=== PATIENT | female | born 1960 | race American Indian/Alaskan Native ===

== ENCOUNTER 2017-12-13 08:17 | Day surgery (SDC) | payer OTHER ==
--- NOTE | 2017-12-13 10:22 | Anesthesia Day of Surgery ---
Anesthesia Day of Surgery - Day of Surgery Patient Examined: Yes Patient H&P Reviewed: Yes Patient is NPO: Yes
--- NOTE | 2017-12-13 10:22 | Anesthesia Consultation ---
Anesthesia Consult and Med Hx Date of service: 12/13/17 - Airway Anesthetic Teeth Evaluation: Good ROM Head & Neck: Adequate Mental/Hyoid Distance: Adequate Mallampati Class: Class II Intubation Access Assessment: Probably Good - Pulmonary Exam CTA: Yes - Cardiac Exam Cardiac Exam: RRR - Pre-Operative Health Status ASA Pre-Surgery Classification: ASA2, ASA3 Proposed Anesthetic Plan: MAC - Pulmonary Hx Smoking: No Hx Asthma: No Hx Respiratory Symptoms: Yes (chronic non-prod. cough) SOB: No COPD: No - Cardiovascular System Hx Hypertension: Yes Hx Coronary Artery Disease: No Hx Heart Attack/AMI: No - Central Nervous System Hx Neuromuscular Disorder: No - Endocrine Hx Renal Disease: No
[2017-12-13] MEDS ORDERED: VERSED ONE (10:31)
[2017-12-13] MEDS ORDERED: SUBLIMAZE ONE (10:31)
[2017-12-13] MEDS: MYDRIACYL OS SCH ×3 (11:16→11:27)
[2017-12-13] MEDS: TETRACAINE 0.5% OS PRN ×2 (11:16→11:27)
[2017-12-13] MEDS: AK-Dilate OS SCH ×3 (11:17→11:27)
[2017-12-13] MEDS: VIGAMOX OS SCH ×3 (11:17→11:27)
--- NOTE | 2017-12-13 11:59 | Operative Report ---
Operative Report Operative Report: PATIENT'S NAME: DATE OF : DATE OF SURGERY: 12/13/2017 PREOPERATIVE DIAGNOSIS: Retained lens fragment left eye POSTOPERATIVE DIAGNOSIS: Same OPERATIVE PROCEDURE: Removal of retained lens fragment left eye SURGEON: Yazmin Holloway M.D. MERCHANDISE ADJUSTMENT CLERK SURGEON: Latonya ANESTHESIA: Monitored anesthesia care in combination with topical and intracameral anesthesia because of the established specific risk of reflux, arrhythmias, or anxiety attacks associated with ocular manipulation, as well as the difficulty of the salon assistant to manage such potentially catastrophic events while simultaneously attempting to complete the surgical procedure and was deemed necessary for the patient's safety to have an Signal Tower Operator present during the procedure whenever possible. An Signal Tower Operator was utilized to regulate the intravenous sedation of the patient so the patient was cooperative yet not asleep in order for the patient to successfully maintain fixation of the eye on the operating light of the microscope. COMPLICATIONS: [No surgical complications] No blood loss. ALLERGIES: Ondansetron ,sulfa PROGNOSIS: Excellent INDICATIONS FOR SURGERY: The patient is undergoing surgery in the hopes of eliminating or improving these visual difficulties. PROCEDURE: After arriving at the surgery center, the patient was given topical anesthetic and dilating drops, as noted in the record. The patient was then taken into the operating room and given more anesthetic drops. The eyelids , lashes, and lid margins were scrubbed with Betadine solution, and the patient was draped. The Nurse Signal Tower Operator administered IV sedation and monitored the patient during the procedure. The eye was then fixated with a 0.12, and a stab incision was made in the peripheral clear cornea into the anterior chamber. This was made on my left side. Sinskey hook was used to remove previous sacral incision. I&A was used to remove remaining cortex. Wound was closed I was found to be watertight. DISCHARGE SUMMARY: The patient was released in stable condition. The patient and those with the patient were given a written sheet of postoperative instructions and counseling on any abnormal laboratory studies. The patient is to see us tomorrow for follow-up in the office and is to call immediately for any difficulties. Yazmin Holloway M.D. Date
--- NOTE | 2017-12-13 12:01 | Short Stay Summary ---
Short Stay Documentation Date of service: 12/13/17 - History H&P: obtained from office - Allergies and Medications Current Medications: Allergies metoclopramide [From Reglan] Allergy (Verified 12/13/17 10:30) Headache ondansetron [From Zofran] Allergy (Verified 12/13/17 10:30) Headache Sulfa (Sulfonamide Antibiotics) Allergy (Verified 12/13/17 10:30) Hives Home Medications Medication Instructions Recorded Confirmed Last Taken Type Amlodipine Bes/Olmesartan Med 1 tab PO DAILY 12/13/17 12/13/17 12/12/17 History [Amlodipine-Olmesartan 10-40 mg] Metoprolol Succinate [Toprol Xl] 1 tab PO DAILY 12/13/17 12/13/17 12/12/17 21: 00 History Moxifloxacin HCl [Moxifloxacin] 1 drop OD QID 12/13/17 12/13/17 12/12/17 History Nepafenac [Ilevro 0.3%] 1 drop OD DAILY 12/13/17 12/13/17 12/12/17 History Pravastatin [Pravachol] 1 tab PO DAILY 12/13/17 12/13/17 12/12/17 History Sitagliptin Phosphate [Januvia] 1 tab PO DAILY 12/13/17 12/13/17 12/12/17 History prednisoLONE ACETATE 1%(NF) [Pred 1 drop OU QID 12/13/17 12/13/17 12/12/17 History Forte 1%(Nf)] Active Medications Moxifloxacin HCl (Vigamox) 1 drops OS Q5MIN [facility] Stop: 12/15/17 11:01 Last Admin: 12/13/17 11:27 Dose: 1 drops Phenylephrine HCl (Ak-Dilate) 1 drops OS Q5MIN [facility] Stop: 12/15/17 11:01 Last Admin: 12/13/17 11:27 Dose: 1 drops Prednisolone Acetate (Pred Forte 1%) 1 drops OS QID [facility] Tetracaine HCl (Tetracaine 0.5%) 1 drops OS Q5M PRN PRN Reason: Anesthesia Last Admin: 12/13/17 11:27 Dose: 1 drops Tropicamide (Mydriacyl) 1 drops OS Q5MIN [facility] Stop: 12/15/17 10:32 Last Admin: 12/13/17 11:27 Dose: 1 drops - Brief post op/procedure progress note Date of procedure: 12/13/17 Pre-op diagnosis: retained lens fragment left eye Post-op diagnosis: same Procedure: Removal of retained lens fragment left eye Anesthesia: MAC, local Surgeon: TY RAY Estimated blood loss: none Pathology: none Condition: stable - Disposition Condition at discharge: Good Disposition: DC-01 TO HOME OR SELFCARE - Discharge Diagnoses (1) Cataract fragments of left eye following cataract surgery Status: Resolved Short Stay Discharge Plan Follow up with: SASCHA GALLEGOS MD [Primary Care Provider] - 7 Days
[2017-12-13 12:58] VITALS: BP 129/69
[2017-12-13] MEDS ORDERED: PRED FORTE 1% OS SCH (14:00)
--- NOTE | 2017-12-13 14:07 | Post Anesthesia Evaluation ---
- Post Anesthesia Evaluation Patient Participated: Yes Airway Patent: Yes Stable Respiratory Function: Yes Nausea/Vomiting: No Temp > 96.8F: Yes Pain Manageable: Yes Adequeate Hydration: Yes Anesthesia Complications: No
== END 2017-12-13 12:50 | disposition home or self-care (01) ==
LOC: OR 08:17
DX: H59.022 Cataract (lens) fragments in eye following cataract surgery, left eye (principal); E78.00 Pure hypercholesterolemia, unspecified; E11.9 Type 2 diabetes mellitus without complications; K21.9 Gastro-esophageal reflux disease without esophagitis; M19.90 Unspecified osteoarthritis, unspecified site; I10 Essential (primary) hypertension; G47.33 Obstructive sleep apnea (adult) (pediatric); E66.01 Morbid (severe) obesity due to excess calories; Z68.41 Body mass index [BMI] 40.0-44.9, adult; Z79.899 Other long term (current) drug therapy; Z88.2 Allergy status to sulfonamides; Z88.8 Allergy status to other drugs, medicaments and biological substances; Z96.641 Presence of right artificial hip joint; Z98.42 Cataract extraction status, left eye; Z98.41 Cataract extraction status, right eye; Z98.890 Other specified postprocedural states; Y83.8 Other surgical procedures as the cause of abnormal reaction of the patient, or of later complication, without mention of misadventure at the time of the procedure
CPT/HCPCS: 66840; 82962; J2250; J3010